=== PATIENT | male | born 1965 | race Caucasian/White ===

== ENCOUNTER 2024-02-17 07:49 | Outpatient (CLI) | payer BC, SELFPAY ==
--- NOTE | ~2024-02-17 | US_ITS ---
EXAMINATION: US scrotum doppler DATE: 02/17/2024 08:49 INDICATION: Orchialgia. TECHNIQUE: Grayscale and Doppler ultrasound images of the testes were obtained. COMPARISON: Ultrasound testes 03/23/2019 FINDINGS: The right testis measures 3.5 x 1.8 x 2.3 cm. The right testis is heterogeneously hypoechoi c. The left testis measures 4.8 x 1.9 x 3.5 cm. There is normal vascular flow to both testes. The rig ht epididymis is not visualized. The left epididymis is not visualized. There is a small right hydroc sonny. There is a moderate-sized loculated left hydrocele. IMPRESSION: 1. Mild atrophy of right testis. 2. Small right hydrocele. 3. Moderate-sized loculated left hydrocele. 4. Epididymides not visualized. Reviewed, dictated and finalized at location A.
== END 2024-02-17 07:50 | disposition home or self-care (01) ==
PROVIDERS: PCP Family Medicine; Visit Provider Urology
DX: N43.3 Hydrocele, unspecified (principal)
CPT/HCPCS: 76870; 93976